=== PATIENT | female | born 1935 | race Caucasian/White ===

== ENCOUNTER → 2017-02-20 | Outpatient (CLI) | payer MEDICARE, OTHER ==
[~2017-02-20] MED LIST: ACET325 PO; ALEN70 PO; AMBI10TA PO; ESTR42.5V PV; FISH1000 PO; METO25 PO; NEUR100C PO; OMEP20CA5 PO; PROM25SU8 PO; RAMI10CA PO; SERT50 PO; SIMV20 PO; VALA500 PO; [UNRECOGNIZED DRUG - OTHER] PO
[2017-02-20 11:52] LABS: AUTOMATED NEUTROPHIL # 3.5 TH/MM3 (1.8-7.7); BASOPHIL # 0.1 TH/MM3 (0-0.2); BASOPHIL % 1.3 % (0.0-2.0); EOSINOPHIL # 0.2 TH/MM3 (0-0.4); EOSINOPHIL % 3.8 % (0.0-4.0); HEMATOCRIT 44.1 % (35.0-46.0); HEMO FLAGS DIFF FINAL; LYMPH % 31.4 % (9.0-44.0); MEAN CELL VOLUME 89.9 FL (80.0-100.0); MEAN CORPUSCULAR HEMOGLOBIN 29.4 PG (27.0-34.0); MEAN CORPUSCULAR HGB CONC 32.7 % (32.0-36.0); MONO % 8.2 % (0.0-8.0); NEUT % 55.3 % (16.0-70.0); PLATELET COUNT 175 TH/MM3 (150-450); RED BLOOD COUNT 4.91 MIL/MM3 (4.00-5.30); RED CELL DISTRIBUTION WIDTH 14.6 % (11.6-17.2); WHITE BLOOD COUNT 6.3 TH/MM3 (4.0-11.0)
[2017-02-20 12:11] LABS: BLOOD, URINE NEG (NEG); COMMENT (UR) CULT NOT INDICATED; CULTURE IF INDICATED CULT NOT INDICATED; GLUCOSE,URINE NEG (NEG); KETONE, URINE NEG (NEG); MUCUS URINE FEW /lpf (OCC); NITRITE,URINE NEG (NEG); SQUAMOUS EPITHELIAL CELL URINE 1 /hpf (0-5); URINE COLOR YELLOW (YELLW/STRAW)
[2017-02-20 12:23] LABS: ANION GAP 9 MEQ/L (5-15); AST (GOT) 24 U/L (15-37); BICARBONATE 26.6 MEQ/L (21.0-32.0); BLOOD UREA NITROGEN 14 MG/DL (7-18); CHLORIDE 106 MEQ/L (98-107); GLOMERULAR FILTRATION RATE 61 ML/MIN (>89); GLUCOSE,FASTING 89 MG/DL (74-99); POTASSIUM 3.9 MEQ/L (3.5-5.1); SODIUM (NA) 142 MEQ/L (136-145)
[2017-02-20 12:30] LABS: ALKALINE PHOSPHATASE 63 U/L (45-117); ALT (GPT) 25 U/L (10-53); HDL CHOLESTEROL 68.5 MG/DL (40.0-60.0); LDL CHOLESTEROL 114 MG/DL (0-99); TOTAL BILIRUBIN ADULT 0.7 MG/DL (0.2-1.0)
== END ==
LOC: ELAB 10:48
PROVIDERS: ATTEND Family Medicine
DX: I10 Essential (primary) hypertension (principal); M81.0 Age-related osteoporosis without current pathological fracture; E78.5 Hyperlipidemia, unspecified
CPT/HCPCS: 36415; 80053; 80061; 81001; 82306; 85025

== ENCOUNTER → 2017-09-21 | Day surgery (SDC) | payer MEDICARE, OTHER ==
[~2017-09-21] MED LIST changes: +BUPIVACAINE/EPINEPHRINE 0.5% PF 10 ML VIAL ONE; +KETOROLAC TROMETHAMINE 30 MG/ML (IVP) VIAL IV PUSH ONE; +LIDOCAINE 1.5%/EPINEPHrine 1:200,000 PF SOLN 30 ML AMP ONE; +MIDAZOLAM HCL 2 MG/2 ML VIAL ONE; +PROPOFOL 200 MG/20 ML AMP IV ONE; +ceFAZolin 2 GM PREMIX 50 ML ONE
--- NOTE | 2017-09-21 17:18 | PD.OP ---
cc: Fausto Driscoll. Operative Report Date of Surgery: Sep 21, 2017 Preoperative Diagnosis: Compression fracture of T8, L2, L3, subacute. Compression fracture T9, T10, remote Postoperative Diagnosis: Same Procedure: Kyphoplasty of T8, L2, L3 Anesthesia: TIVA Surgeon: Fausto Driscoll English Drawer(s): Staff Operation and Findings: EBL: 25 cc INDICATION: This patient is an 82-year-old female who fell approximately 4-5 weeks ago. She had acute onset of back pain which has been recalcitrant to conservative care including medication and bracing. She now presents for kyphoplasty following an MRI scan showing evidence of acute and subacute fractures involving T8, L2 and L3 PROCEDURE: The patient was brought to the operating room and given light sedation.. The patient was allowed to rolled to a prone position on a well- padded radiolucent table. All pressure points were protected in the back was scrubbed with alcohol followed by Hibiclens followed by ChloraPrep and draped sterilely. A timeout was done and antibiotics were given. AP and lateral radiographic images were used to identify the proper levels and perform skin markings. We started from the left side at the T8 level. Local anesthesia was utilized. A small incision was made. An awl was placed down through the skin subcutaneous tissue and muscle down to the end of the facet joint. This is placed through the pedicle controlling this under AP and lateral images. A proper size balloon was placed through this allowing correction of the deformity. We then moved to the L2 level. In a likewise fashion a left-sided approach was utilized. A small incision was made. Local anesthesia was utilized. We placed this through the pedicle from the left side and into the vertebral body. A 20 mm Kyphon balloon was positioned and inflated. We had good correction of deformity. We then moved to the L3 level. A approach from the right side was utilized. Local anesthesia was utilized. A small incision was made and under AP and lateral radiographic graphic images an awl was placed through the pedicle and into the vertebral body. A 20 mm Kyphon balloon was positioned and elevated having good correction of the deformity. On the back table methylmethacrylate was mixed. After approximately 11 minutes it was injected at these levels. We had no significant extravasation. The cement was allowed harden. The tubes were removed. Intraoperative x-rays were obtained in AP and lateral plane. The wound was irrigated anesthetized and closed with 4-0 Vicryl followed by Dermabond. The sponge count and needle counts and instrument counts were all correct. The patient tolerated the procedure well as taken to the recovery room in satisfactory condition. FINDINGS: There was evidence of subacute fractures at all 3 levels. There was no significant extravasation. The overall fill and correction of deformities were considered to be very successful. Fausto Driscoll MD Sep 21, 2017 17:18
== END | disposition home or self-care (01) ==
LOC: ESDC 13:49
PROVIDERS: ATTEND Orthopaedic Surgery Orthopaedic Surgery of the Spine
DX: S22.060A Wedge compression fracture of T7-T8 vertebra, initial encounter for closed fracture (principal); S32.020A Wedge compression fracture of second lumbar vertebra, initial encounter for closed fracture; S32.030A Wedge compression fracture of third lumbar vertebra, initial encounter for closed fracture; S22.070A Wedge compression fracture of T9-T10 vertebra, initial encounter for closed fracture
CPT/HCPCS: 01936; 22513; 22515; 72100; 76000; J0690; J1885; J2250; J3010

== ENCOUNTER → 2018-02-12 | Outpatient (CLI) | payer MEDICARE, OTHER ==
[~2018-02-12] MED LIST changes: -BUPIVACAINE/EPINEPHRINE 0.5% PF 10 ML VIAL ONE; -KETOROLAC TROMETHAMINE 30 MG/ML (IVP) VIAL IV PUSH ONE; -LIDOCAINE 1.5%/EPINEPHrine 1:200,000 PF SOLN 30 ML AMP ONE; -MIDAZOLAM HCL 2 MG/2 ML VIAL ONE; -PROPOFOL 200 MG/20 ML AMP IV ONE; -ceFAZolin 2 GM PREMIX 50 ML ONE
== END ==
LOC: ELAB 09:53
PROVIDERS: ATTEND Internal Medicine Cardiovascular Disease
DX: I25.10 Atherosclerotic heart disease of native coronary artery without angina pectoris (principal); R61 Generalized hyperhidrosis; I48.92 Unspecified atrial flutter; I35.1 Nonrheumatic aortic (valve) insufficiency
CPT/HCPCS: 36415; 84439; 84443